=== PATIENT | female | born 1970 | race Caucasian/White ===

== ENCOUNTER 2019-11-29 08:09 | Outpatient (CLI) | payer BC ==
--- NOTE | 2019-11-29 09:55 | CT ---
CT ABDOMEN AND PELVIS WITH ORAL AND IV CONTRAST: HISTORY: Left upper quadrant abdominal mass, right flank pain. COMPARISON: None. FINDINGS: The lung bases are clear. There is a tiny 3 mm low-density lesion in the right lobe of the liver, to o small to characterize. No calcified gallstones are seen. The spleen, pancreas, adrenal glands, an d kidneys are normal. No free air, free fluid, or lymphadenopathy is seen in the abdomen or pelvis. Uterus is present. The small bowel loops are not abnormally dilated. An abnormal appendix was not seen. No aneurysmal dilatation of the abdominal aorta is identified. A circumaortic left renal vein is present. No oste olytic or osteoblastic lesions are seen. IMPRESSION: No significant abnormalities are identified. POS: [facility]
== END 2019-11-29 08:10 | disposition home or self-care (01) ==
LOC: SCSCT 08:09
PROVIDERS: ATTEND Family Medicine
DX: R10.9 Unspecified abdominal pain (principal); R19.02 Left upper quadrant abdominal swelling, mass and lump
CPT/HCPCS: 74177

== ENCOUNTER 2025-03-27 06:04 | Day surgery (SDC) | payer BC ==
[~2025-03-27 06:04] MED LIST: EPINEPHrine 0.3 MG in Ophthalmic Irrigation Solution 500 ML IRR SCH
[2025-03-27] MEDS ORDERED: Cyclopentolate 1% Opth Drop 2 ML BOT ONE (06:18)
[2025-03-27] MEDS ORDERED: PROPOFOL 40 ML ONE (06:55)
[2025-03-27] MEDS ORDERED: Lidocaine 4% PF 5 ML AMP ONE (07:55)
[2025-03-27] MEDS ORDERED: CEFAZOLIN 1 GM VIAL ONE (07:55)
[2025-03-27] MEDS ORDERED: Lidocaine 1% PF 5 ML VIAL ONE (07:55)
[2025-03-27] MEDS ORDERED: Maxitrol 0.1% Opth Oint 3.5 GM TUBE ONE (07:55)
== END 2025-03-27 09:06 | disposition home or self-care (01) ==
LOC: SDC 06:04
PROVIDERS: ATTEND Ophthalmology Retina Specialist
PROC: 08NE3ZZ Release Right Retina, Percutaneous Approach (ICD-10-PCS; principal; 2025-03-27)
PROC: 08T43ZZ Resection of Right Vitreous, Percutaneous Approach (ICD-10-PCS; principal; 2025-03-27)
DX: H35.371 Puckering of macula, right eye (principal)
CPT/HCPCS: J0166; J0690; J2250; J2704; J3010; J3301; J3490